=== PATIENT | female | born 1990 ===

== ENCOUNTER 2018-05-20 14:00 | Inpatient (IN) | payer OTHER ==
[2018-05-20 16:21] VITALS: BMI 40.2
[2018-05-20] MEDS ORDERED: Lactated Ringer's 1,000 ML IV ONE (16:34)
[2018-05-20] MEDS ORDERED: Lactated Ringer's 1,000 ML IV SCH (16:45)
[2018-05-20 17:40] LABS: BASO % 0.5 % (0.0-2.0); EOS # 0.1 K/uL (0.0-0.7); EOS % 0.5 % (0.0-4.0); HEMOGLOBIN 13.1 g/dL (12.0-16.0); LYMPH # 1.9 K/uL (1.0-4.3); LYMPH % 19.6 % (20.0-40.0); MEAN CELL VOLUME 87.5 fl (81.0-99.0); MEAN CORPUSCULAR HEMOGLOBIN 29.4 pg (27.0-31.0); MEAN CORPUSCULAR HGB CONC 33.6 g/dL (33.0-37.0); MONO # 0.8 K/uL (0.0-0.8); MONO % 8.4 % (0.0-10.0); RBC 4.46 Mil/uL (3.80-5.20); WHITE BLOOD COUNT 9.9 K/uL (4.8-10.8)
[2018-05-20] MEDS ORDERED: Fentanyl/Bupivacaine HCl 250 ML EPI ONE (18:13)
--- NOTE | 2018-05-20 20:49 | OBPN ---
Datetime: 05/20/2018 20:30 IP Progress Impression: Reassuring heart rate IP Informed Consent Obtain: Vaginal Delivery; Risks, Benefits and Alternatives Discussed IP Progress Plan: Augmentation; Anticipate Vaginal Delivery FHR - Baseline A Provider: 120 Presentation-Admit: Vertex IP Progress Note Comment: OB Hospitalist note 8pm - 8am...sign out rec'd. She was admitted in early labor. She rec'd epidrual for pain relief. She feels comfortable PNC: [facility] - GDAM1 contoled by diet as per pt. GBSneg Sono friday 8.5lb acc to pt A: IUP at 40w Latent phase of labor GDMA1 - accucheck on admission 70mg/dl PLAN: will give po fluids Discussion with patient about labor, augmentation, medications, risks/complications associated wit h GDMA incl possiblity of trauma...she still wants to deliver vaginally. She was counselled by her doctors at [facility]. Kinyarwanda speaking. She and her family state that they understand. The ir question answered. Agrees to starting pitocin augmentation NICHD Accel Fetus A IP Provider: [id number] FHR Category Provider Fetus A: Category I NICHD Variability Prov Fetus A: Moderate 6-25bpm Dilatation, Provider: 4-5 Effacement, Provider: 75 Station, Provider: -2 NICHD Decel Fetus A IP Provider: None Datetime: 05/20/2018 15:28 Vital Signs Provider: Reviewed Vital Signs Provider Details: BP 131/74
[2018-05-20] MEDS ORDERED: Oxytocin 30 units/LR 500ML 30 UNITS/500 ML BAG IV ONE (21:09)
[2018-05-20] MEDS ORDERED: Oxytocin 30 units/LR 500ML 30 U/500 ML BAG IV ONE (21:09)
[2018-05-21] MEDS ORDERED: Lidocaine 1% Inj (20ml) ONE (03:21)
[2018-05-21] MEDS ORDERED: Oxytocin 30 units/LR 500ML 30 UNITS/500 ML BAG IV ONE (06:57)
[2018-05-21] MEDS ORDERED: Benzocaine/Menthol SPRAY TOP PRN (06:57)
--- NOTE | 2018-05-21 08:40 | OBPN ---
Datetime: 05/21/2018 03:17 IP Progress Impression: Rupture of membranes IP Informed Consent Obtain: Vaginal Delivery IP Progress Plan: Continue present management IP Progress Note Comment: Rupture of membrane occurred at 2:50am and had 2-3 minutes of deceleration s. Pitocin was d'alejandra. Will observe. OB Hospitalist on-call Notified that she had SROM and was 10cm dilated. She was on Pitocin at 4miu/h...Pt seen at 3:10am by me. FH recovered after pitocin was discontinued. Pt was asked not to push until right before NSV D to allow FH recovery in btw CTX
--- NOTE | 2018-05-21 08:45 | OBDS ---
DELIVERY PERSONNEL Delivery Doctor: Humberto Stern DO Network Operations Manager: Danya Ponce RN Anesthesiologist: Gilma Killian MD Resident: Juan PGY-1 MATERNAL INFORMATION Delivery Anesthesia: Local; Epidural Medications in Delivery: Oxytocin Estimated Blood Loss (ml): 250 Placenta Cultured: No Maternal Complications: None Provider Comments: of a viable male in cephalic presentation. Midline episiotomy perform ed. 's head delivered in a controlled manner. No nuchal cord was noted. Cord was doubled clampe d and cut by father, and cord blood was collected. Placenta was delivered intact spontaneously, and three vessel cords was noted. Peds called and present during delivery. Anesthesia called and gave to p-up epi. Mother _ baby in stable condition. Dr. Stern in attendance Jenise Martinez PGY-1 OB Hospitalist on-call... I attended the delivery from pushing, to MLE, to delivery of . AP GAR 9,9 MAHNDO LABOR SUMMARY EDC: 05/17/2018 00:00 No. Babies in Womb: 1 Attempted: No Labor Anesthesia: Epidural LABOR INFORMATION Reason for Induction: Not Applicable Onset of Labor: 05/20/2018 16:00 Complete Dilatation: 05/21/2018 02:50 Oxytocin: Augmentation Group B Beta Strep: Negative Antibiotics # of Doses: N/A Steroids Given: None Reason Steroids Not Administered: Not Applicable MEMBRANES Membranes Rupture Method: Spontaneous Rupture of Membranes: 05/21/2018 02:50 Length of Rupture (hrs): 0.80 Amniotic Fluid Color: Clear Amniotic Fluid Amount: Moderate Amniotic Fluid Odor: Normal STAGES OF LABOR Stage 1 hrs: 10 Stage 1 min: 50 Stage 2 hrs: 0 Stage 2 min: 48 Stage 3 hrs: 0 Stage 3 min: 12 Total Time in Labor hrs: 11 Total Time in Labor min: 50 VAGINAL DELIVERY Episiotomy: Median Laceration Extension: Second Degree Laceration Type: Perineal Laceration Repair: Yes Laceration Repair Note: Lidocain infiltrated. MLE _ 2nd degree lac; repaired with 2.0 _ 3.0 vicryl. Initial Vag Sponge Count: 5 Final Vag Sponge Count: 5 Initial Vag Sharps Count: 2 Final Vag Sharps Count: 2 Sponge Count Correct: Yes Sharps Count Correct: Yes Count Comment: Laps 5 Sharps 2 Instruments 15 BABY A INFORMATION Infant Delivery Date/Time: 05/21/2018 03:38 Method of Delivery: Vaginal Born in Route : No : N/A Forceps: N/A Vacuum Extraction: N/A Shoulder Dystocia : No SHOULDER DYSTOCIA BABY A Delivery Date/Time: 05/21/2018 03:38 PRESENTATION/POSITION BABY A Presentation: Cephalic Cephalic Presentation: Vertex Breech Presentation: N/A PLACENTA INFORMATION BABY A Placenta Delivery Time : 05/21/2018 03:50 Placenta Method of Delivery: Spontaneous Placenta Status: Delivered SCORES BABY A Heart Rate 1 min: >100 bpm Resp Effort 1 min: Good Cry Reflex Irritability 1 min: Cough or Sneeze or Pulls Away Muscle Tone 1 min: Active Motion Color 1 min: Body [place], Extremities Blue Resuscitation Effort 1 min: Tactile Stimulation SCORE 1 MIN: 9 Heart Rate 5 min: >100 bpm Resp Effort 5 min: Good Cry Reflex Irritability 5 min: Cough or Sneeze or Pulls Away Muscle Tone 5 min: Active Motion Color 5 min: Body [place], Extremities Blue Resuscitation Effort 5 min: Tactile Stimulation SCORE 5 MIN: 9 INFORMATION BABY A Gestational Age at Delivery: 40.3 Gestational Status: Term Outcome : Liveborn Condition : Stable Infant Sex: Male IDENTIFICATION/MEDS BABY A ID Band Number: [id number] ID Band Location: Left Leg; Left Arm WEIGHT/LENGTH BABY A Infant Birthweight (gms): 3335 Weight (lb): 7 Weight (oz): 6 CORD INFORMATION BABY A No. Cord Vessels: 3 Nuchal Cord : N/A Cord Blood Taken: Yes Infant Suction: Mouth; Nose ASSESSMENT BABY A Complications: Other Complications Other: Terminal Meconium noted Physical Findings at Delivery: Within Normal Limits Infant Respirations: Appears Normal High Lift Driver/ALS Called : No Care By: Blas Hamilton RN Transferred To: Remains with Mother
[2018-05-22 07:01] LABS: BASO # 0.1 K/uL (0.0-0.2); BASO % 0.5 % (0.0-2.0); EOS # 0.1 K/uL (0.0-0.7); EOS % 0.8 % (0.0-4.0); HEMOGLOBIN 11.4 g/dL (12.0-16.0); LYMPH # 1.6 K/uL (1.0-4.3); LYMPH % 11.2 % (20.0-40.0); MEAN CELL VOLUME 88.2 fl (81.0-99.0); MEAN CORPUSCULAR HEMOGLOBIN 29.4 pg (27.0-31.0); MEAN CORPUSCULAR HGB CONC 33.3 g/dL (33.0-37.0); MEAN PLATELET VOLUME 9.3 fl (7.2-11.7); MONO # 1.2 K/uL (0.0-0.8); MONO % 8.5 % (0.0-10.0); NEUT # 11.5 K/uL (1.8-7.0); RBC 3.87 Mil/uL (3.80-5.20); RED CELL DISTRIBUTION WIDTH 16.1 % (11.5-14.5); WHITE BLOOD COUNT 14.5 K/uL (4.8-10.8)
--- NOTE | 2018-05-22 07:34 | OBPPN ---
Datetime: 05/22/2018 07:13 PP Pain Prov: Within normal limits PP Nausea Prov: Denies PP Flatus Prov: Yes PP BM Prov: No PP Heart Prov: Normal PP Lungs Prov: Normal PP Abdomen/Uterus Prov: Normal PP Extremities Prov: Normal PP Impression Prov: Normal progression PP Plan Prov: Continue present management PP Progress Note Prov: 28 y/o PPD1 sp 05/21/2018 @ 338 had no complaints overnight. Patient is tolerating regular diet, lochia like menses, pain well controlled, and +flatus, -BM. Patient is d oing well with breast feeding. Patient denied any cp, sob, f/c/n/v/d. PE: General: well appearing female Cardio: s1s2 auscultated Resp: clear b/l Abd: BS+ Ext: calves nontender A/P:28 y/o PPD1 sp 05/21/2018 @ 338 1. and ambulation encouraged. 2. Ibuprofen 600mg PRN for mild/mod pain. 3.Anticipated discharge today 05/23/2018. Discussed with OBGYN attending Jenise Martinez PGY-1 OB Hospitalist Addendum: Pt seen and examined by me. Agree w/ above. PPD 1 s/p , doing well, breast and bottle feeding. (ES) Vital Signs Provider PP: Reviewed
[2018-05-23] MEDS ORDERED: Tdap Vaccine 0.5 ml Vial (10-64 yrs) IM ONE (09:00)
--- NOTE | 2018-05-23 09:20 | OBPPN ---
Datetime: 05/23/2018 06:44 PP Pain Prov: Within normal limits PP Nausea Prov: Denies PP Flatus Prov: Yes PP BM Prov: No PP Breasts Prov: Not Done PP Heart Prov: Normal PP Lungs Prov: Normal PP Abdomen/Uterus Prov: Normal PP Lochia Prov: Normal PP Vulva/Perineum Prov: Not Done PP CVA Tenderness Prov: Not Done PP Extremities Prov: Normal PP Impression Prov: Normal progression PP Plan Prov: Continue present management; Discharge PP Progress Note Prov: S: 28 y/o female s/p on 05/21/18 evaluated on PPD2. Pt was seen a nd examined at bedside this AM. No overnight events. Pt reports mild abdominal pain, but well control led with pain meds. Ambulating. Breast feeding (with formula supplementation) without difficulty. Loc hia is similar to menses volume. -Flatus/-BM. Denies fever/chills, diarrhea, nausea/vomiting, chest p ain, dyspnea, and dizziness. Pt declined circumcision for baby. O: VS: Stable overnight GEN: NAD Cardio: S1S2, no murmurs Lungs: clear breath sounds b/l, no wheezing Abdomen: BS+, appropriate tenderness to palpation. Uterus is firm and at the level of the umbilicu s. EXT: No edema, calves nontender NEURO/PSYCH: AAOx3, no grossly focal deficits, preserved affect and mood. H/H (post ): 11.4/34.1 Assessment/Plan: 28 y/o female s/p on 05/21/18 evaluated on PPD2. Pt remains afebrile, tolerating pain with medication. Tolerating diet. Anticipating d/c on 05/23. Continue with current m anagement Encourage and ambulating Ibuprofen 600mg q6 and Percocet 1 tablet 5-325mg prn for pain for pain Crys PGY2 Attending Note: Patient was seen and discussed with Resident and I agree with the above Plan: D/C Home Post check in 6 weeks. Vital Signs Provider PP: Reviewed; Within Normal Limits
--- NOTE | 2018-05-23 09:23 | OBDCSUM ---
Datetime: 05/23/2018 06:45 Discharged to, Provider: Home Follow up at, Provider: [facility] Disch Instr Activity: Normal activity; May be up to bathroom; May be up for meals; May Shower Disch Instr Diet: Regular Discharge Instructions, Provider: Routine instructions given Discharge Diagnosis, Provider: Term Delivered Discharge Time: 05/23/2018 09:21 Follow up in weeks, Provider: 4-6weeks Disch Activity Restrictions: No sexual activity; Nothing in vagina - [place], tampons, douche Discharge Comment, Provider: Diagnosis: 28 y/o female s/p on 05/21/18 : Male, 3335g, 9/9 Post Summary: No complications during post period Discharge Instructions: 1. Encourage 2. PNV 1 tab po daily 3. Ibuprofen 600mg 1 tab prn for mild-mod pain 6. ER precautions: If excessive bleeding or fever without relief from medication, go to ED 7. F/U in 4-6 weeks Discharge Diagnosis Prov Other: s/p uncomplicated Contraception after Delivery: Undecided
[2018-05-23 19:17] VITALS: BP 111/62; PULSE 85; RESP 19; TEMP 98.1; O2SAT 99
== END 2018-05-23 15:10 | disposition home or self-care (01) | DRG 373 ==
LOC: H.EROB2 14:00 → H.L&D 16:36 → H.OB/GYN 05-21 08:55
PROVIDERS: ADMIT Obstetrics & Gynecology Gynecology; ATTEND Obstetrics & Gynecology Gynecology
PROC: 0W8NXZZ Division of Female Perineum, External Approach (ICD-10-PCS; principal; 2018-05-20)
PROC: 10E0XZZ Delivery of Products of Conception, External Approach (ICD-10-PCS; 2018-05-20)
PROC: 4A1HXCZ Monitoring of Products of Conception, Cardiac Rate, External Approach (ICD-10-PCS; 2018-05-20)
DX: O70.1 Second degree perineal laceration during delivery (principal); O77.0 Labor and delivery complicated by meconium in amniotic fluid; Z37.0 Single live birth; Z3A.40 40 weeks gestation of pregnancy